=== PATIENT | female | born 2005 | race Caucasian/White ===

== ENCOUNTER 2024-08-07 19:28 | Emergency (ER) | payer OTHER, SELFPAY ==
[2024-08-07 19:28] VITALS: BP 139/96; PULSE 91; RESP 16; TEMP 36.8; O2SAT 97; BMI 26.4
--- NOTE | 2024-08-07 19:38 | EX.ED.DYSGE1 ---
HPI History of Present Illness Chief Complaint: Allergic Reaction Informant: patient Narrative Narrative: Patient is a 18-year-old female with history of anaphylactic reaction to peanuts presenting for concern of allergic reaction. About an hour prior to arrival she was eating dinner at the [facility]. She denied any penis that she is aware of and has potatoes, asparagus, rice and chickpeas. She then started to feel like her throat was scratching, became short of breath and started wheezing. She had an episode of vomiting. She did not use her EpiPen because she was so close to just came to the emergency room. She did take a dose of Zyrtec prior to arrival. Does feel like she is having an allergic reaction. States she was in her normal state of health before all of this and was feeling fine. Does also report history of asthma. No other complaints or concerns at this time. PFSH PFSH Home Medications ?Medication ?Instructions ?Recorded ?Last Taken ?Type famotidine 20 mg tablet (Pepcid) 20 mg PO DAILY #7 tabs 08/07/24 Unknown Rx prednisone 20 mg tablet 40 mg (2 x 20 mg) PO DAILY #10 tabs 08/07/24 Unknown Rx Allergy/AdvReac Type Severity Reaction Status Date / Time peanut Allergy Anaphylaxis Verified 08/07/24 19:30 Social History Smoking Status: Never smoker ROS ROS ED Constitutional Constitutional ED: Denies chills or fever(s) ENT ENT ED: Reports sore throat Cardiovascular Cardiovascular: Denies chest pain Respiratory/Chest Respiratory/Chest: Reports cough, dyspnea and other Details: Wheezing Gastrointestinal Gastrointestinal: Reports nausea and vomiting Musculoskeletal Musculoskeletal: Denies arthralgias or myalgias Integumentary Reports rash Neurologic Neurologic: Denies headache(s) Allergic/Immunologic Allergic/Immunologic ED: Denies mouth swelling, tongue swelling or urticaria EXAM Physical Exam Const Vital Signs: 08/07/24 19:28 08/07/24 20:28 08/07/24 21:00 Temperature 98.2 F Temperature Source Oral Pulse Rate 91 64 70 Respiratory Rate 16 18 19 H Blood Pressure 139/96 H 118/68 119/63 Blood Pressure Mean 110 84 81 Pulse Ox 97 100 95 Oxygen Delivery Method Room Air Room Air Room Air 08/07/24 22:00 Temperature Temperature Source Pulse Rate 90 Respiratory Rate 18 Blood Pressure 125/71 H Blood Pressure Mean 89 Pulse Ox 98 Oxygen Delivery Method Room Air Positive well nourished and well developed General Appearance ED: well developed and NAD HEENT Reports TM's clear and moist mucous membranes HEENT Narrative: No oropharyngeal edema appreciated. Uvula midline. No stridor. Tympanic Membrane ED: Yes TM's clear Neck supple Chest Wall inspection of chest normal Resp normal respiratory effort Resp Narrative: In expiratory wheezing present more pronounced at the lower lungs Cardio regular rate and regular rhythm Extremity normal to inspection General Extremety ED: Negative for edema General Extremity: Negative for edema Neuro oriented x3 Sensorium / Orientation: alert Motor Exam: Negative for general weakness Psych mental status grossly normal Skin Skin Narrative: Face is flushed but no urticaria present. MDM MDM MDM Narrative Medical decision making narrative: Patient evaluated for concern of allergic reaction. Patient has wheezing and feels that there is a scratchy sensation in his throat. Reportedly vomited before coming in. Is hemodynamically stable at this time is given IM epinephrine as well as cocktail for allergic reaction including Solu-Medrol, Benadryl and Pepcid. Will continue to monitor. Patient reevaluated. Clinically improving. Wheezing is clearing up. Face is less red. Patient is monitored for an additional 2 hours with no further symptoms. Will be discharged home with a prescription for prednisone and Pepcid. Has an EpiPen. I will follow-up with her family primary care doctor outside of [place] as needed. Given return precautions. Discharged home in stable and improved condition. Discharge Plan Triage Chief Complaint: Allergic Reaction ED Provider: Vanessa Obrien Dx/Rx/DC Orders Clinical Impression: Anaphylactic reaction due to peanuts Instructions: ED Anaphylaxis Prescriptions: New prednisone 20 mg tablet 40 mg PO DAILY Qty: 10 0RF famotidine [Pepcid] 20 mg tablet 20 mg PO DAILY Qty: 7 0RF Primary Care Provider: AUGUST DOLL Referrals: AUGUST DOLL [Other] Print Language: Telugu Disposition Disposition: Home, Self Care
[2024-08-07] MEDS: Famotidine 200 MG/20 ML MDV 20 MG in 0.9% Normal Saline (Pres. free 8 ML 300 MG IV (19:51)
[2024-08-07] MEDS: Epi Pen (EQUIV) 0.3 MG Syringe IM (19:52)
[2024-08-07] MEDS: MethylPREDNISolone 125 MG/2 ML Vial IV (19:52)
[2024-08-07] MEDS: DiphenhydrAMINE 50 MG/ML Syringe IV (19:52)
[2024-08-07 20:28] VITALS: BP 118/68; PULSE 64; RESP 18; O2SAT 100
[2024-08-07 21:00] VITALS: BP 119/63; PULSE 70; RESP 19; O2SAT 95
[2024-08-07 22:00] VITALS: BP 125/71; PULSE 90; RESP 18; O2SAT 98
[2024-08-07 23:19] VITALS: BP 136/79; PULSE 70; RESP 16; TEMP 36.7; O2SAT 97
== END 2024-08-07 23:21 | disposition home or self-care (01) ==
PROVIDERS: Emergency Provider Emergency Medicine; Visit Provider Emergency Medicine
DX: T78.01XA Anaphylactic reaction due to peanuts, initial encounter (principal)
CPT/HCPCS: 96372; 96374; 96375; 99282; A4216